=== PATIENT | female | born 1940 | race Caucasian/White ===

== ENCOUNTER 2017-02-09 14:55 | Inpatient (IN) ==
[2017-02-09] MEDS ORDERED: ASPIRIN PO STA (15:03)
[2017-02-09] MEDS ORDERED: NS 1,000 ML IV ONE (15:14)
--- NOTE | 2017-02-09 15:17 | EKG Report ---
Test Performed on : 02/09/2017 3:04:22 PM Test Reason : CHEST PAIN Blood Pressure : / mmHG Vent. Rate : 119 BPM Atrial Rate : 119 BPM P-R Int : 136 ms QRS Dur : 064 ms QT Int : 292 ms P-R-T Axes : -69 -20 043 degrees QTc Int : 410 ms Unusual P axis and short WI, probable junctional tachycardia. Abnormal ECG When compared with ECG of 16-JUL-2013 07:11, Junctional rhythm. has replaced Sinus rhythm. Unconfirmed Result
[2017-02-09 15:43] LABS: BE -2.1 mmoll (-3.0-3.0); BLOOD TYPE ARTERIAL; METHB 1.7 % (0.0-1.5); O2(CT) 18.1 mL/dL (15.0-23.0); PCO2(98.6) 31 mmHg (35-45); PO2(98.6) 84 mmHg (60-100); SAMPLE BLOOD; SAO2 97.8 % (95.0-100.0); THB 13.6 g/dL (11.5-17.4); pH(98.6) 7.44 (7.35-7.45)
[2017-02-09 15:51] LABS: BASO% 0.2 % (0.0-0.8); EOS% 0.8 % (0.0-10.0); HEMOGLOBIN 13.1 g/dL (12.0-16.0); IMM GRAN# 0.16 X1000 (0.0-0.04); IMM GRAN% 1.2 % (0.0-0.5); LYMPH# 2.87 X1000 (1.2-3.4); MANUAL DIFF NEEDED? NO; MCH 31.1 PG (27-31); MCHC 32.8 g/dL (33-37); MONO# 1.06 X1000 (0.11-0.59); MONO% 8.1 % (1.7-9.3); MPV 10.2 FL (7.4-10.4); NEUT% 67.7 % (42.2-75.2); PLT 269 X1000 (130-400); RBC 4.21 XMIL (4.2-5.4)
[2017-02-09 15:52] LABS: DRAW SITE R BRACHIAL; MODALITY ROOM AIR
[2017-02-09 16:02] LABS: AGAP 12; ALBUMIN 3.2 g/dL (3.5-5.0); ALKALINE PHOSPHATASE 68 U/L (32-104); BUN 48 mg/dL (8-22); CALCIUM 9.6 mg/dL (8.8-10.2); CHLORIDE 110 mmol/L (98-107); CK PROFILE 45 U/L (24-173); COSMO 311; GOT 10 U/L (10-30); GPT 11 U/L (10-36); MAGNESIUM 2.8 mg/dL (1.5-2.7); POTASSIUM 3.9 mmol/L (3.5-5.1); SODIUM 145 mmol/L (136-145); TCO2 24 mmol/L (25-35)
[2017-02-09 16:04] LABS: INR 1.02 (0.86-1.15); PROTIME 14.2 Seconds (12.1-15.5)
[2017-02-09 16:05] LABS: PTT PL 26.1 Seconds (22.6-43.9)
--- NOTE | 2017-02-09 16:42 | Diag Imaging Result Doc PS360 ---
EXAM: CT HEAD W/O CONTRAST HISTORY: AMS TECHNIQUE: CT brain without contrast. Dose reduction protocol. COMPARISON: None. FINDINGS: No parenchymal hemorrhage. No epidural or subdural hematoma. No subarachnoid hemorrhage. No mass identified on this noncontrasted exam. There is diffuse atrophy with chronic microvascular ischemic changes and ventricular prominence. No sinus opacification. IMPRESSION: 1.No hemorrhage 2.Atrophy with chronic microvascular ischemic changes Electronically signed by Seamus Espinosa 02/09/2017 4:39 PM
[2017-02-09 16:52] LABS: BILIRUBIN URINE NEGATIVE (NEGATIVE); BLOOD URINE 4+ (NEGATIVE); CLARITY CLEAR (CLEAR); COLOR YELLOW; GLUCOSE URINE NEGATIVE (NEGATIVE); LEUKOCYTES URINE 2+ (NEGATIVE); NITRITE URINE NEGATIVE (NEGATIVE); PROTEIN URINE 2+(100 mg/dL) mg/dL (NEGATIVE); UROBILINOGEN URINE NORMAL
[2017-02-09 16:53] LABS: URINE EPITHELIAL CELLS <10 /HPF (<10); URINE SOURCE CATH; URINE WBC TNTC /HPF (<10)
[2017-02-09 16:54] LABS: URINE CULTURE PL NEEDED? YES
[2017-02-09] MEDS ORDERED: ROCEPHIN 1 GM/NS 1 GM/50 ML IVPB IV ONE (16:56)
[2017-02-09] MEDS ORDERED: LEVAQUIN 500 MG/D5W 500 MG/100 ML IVPB IV ONE (16:56)
--- NOTE | 2017-02-09 17:01 | PROVIDER DOCUMENTATION ---
This chart was entered by Varsha Stevens Scribe, acting as scribe for Khadijah Mckeon MD. HPI-Neurological Disorder - General Chief Complaint: Altered Mental Status Stated Complaint: AMS Time Seen by Provider: 02/09/17 15:03 Allergies/Adverse Reactions: Patient Allergies Allergy/AdvReac Type Severity Reaction Status Date / Time No Known Allergies Allergy Verified 07/15/13 16:17 Home Medications: Home Medication List Medication Instructions Recorded Confirmed Last Taken Type Divalproex E.r. [Depakote ER] 1,000 mg PO QHS 07/15/13 08/18/13 08/17/13 21:00 History 1000 MG Levothyroxine [Synthroid] 88 microgm PO DAILY 07/15/13 08/18/13 08/18/13 06:00 History 88 MICROGM Memantine HCl [Namenda] 10 mg PO BID 07/15/13 08/18/13 08/18/13 09:00 History 10 MG Metoprolol [Lopressor] 25 mg PO BID 08/18/13 08/18/13 08/18/13 09:00 History 25 MG Folic Acid 1 mg PO DAILY #0 tablet 08/22/13 Unknown Rx Iron Carbonyl/Ascorbic Acid 1 each PO DAILY #0 tablet 08/22/13 Unknown Rx [Icar-C] Levothyroxine [Synthroid] 100 microgm PO DAILY #0 tablet 08/22/13 Unknown Rx Mvi/Minerals Chew [Flintstones 1 each PO BID #0 tablet 08/22/13 Unknown Rx Complete] Trazodone [Desyrel] 25 mg PO QHS #0 08/22/13 08/18/13 08/17/13 21:00 Rx 50 MG - History of Present Illness-Neuro Nature of Presenting Problem: Patient is 76 year old female presents to the ED via EMS with altered mental status. shelter staff told EMS that patient usually looks at them and now she will not. shelter staff stated to EMS she is non verbal. EMS states patient was recently diagnosed with an ileus and constipation. EMS states patient has history of dementia. Headache Location: denies: frontal, temporal, occipital, parietal, global Severity: reports: mild Onset/Duration: reports: this morning Timing: reports: still present Context: reports: other (AMS) Character of Altered Mental Status: reports: other (patient would not look at alf staff and patient normally looks at alf staff.) Any recent trauma/injury?: reports: none Character of Deficits: denies: new weakness, altered sensation, vision problem/ glaucoma, impaired speech, impaired swallowing, decreased ability to stand, decreased ability to walk, falling New weakness or altered sensation location:: reports: none Cognitive Baseline: other (alert but non verbal) Gait Baseline: unable to walk Associated Symptoms: reports: denies symptoms Similar Symptoms Previously?: Yes (present since this am ) Recently seen or treated by another doctor?: No Review of Systems - Adult - REVIEW OF SYSTEMS - ADULT Constitutional: reports: no symptoms reported Eyes: reports: no symptoms reported Ears, Nose, Mouth & Throat: reports: no symptoms reported Cardiovascular: reports: no symptoms reported Respiratory: reports: no symptoms reported Gastrointestinal: reports: no symptoms reported Genitourinary: reports: no symptoms reported Musculoskeletal: reports: no symptoms reported Integumentary: reports: no symptoms reported Neurological: reports: other (AMS). denies: dizziness/vertigo, headache/ migraines, numbness, syncope Psychiatric: reports: no symptoms reported Endocrine: reports: no symptoms reported Hematologic/Lymphatic: reports: no symptoms reported Allergic/Immunologic: reports: no symptoms reported All Other Systems: Reviewed and Negative Past History - Adult - PAST MEDICAL HISTORY-ADULT Review of Records: reports: Nursing Assessment Review, Medications Reviewed, Social history reviewed & non-contributory. Major Childhood Illnesses: reports: denies history Cardiovascular: reports: HTN Respiratory: reports: denies history Gastrointestinal: reports: denies history Obstetrical/Gynecological: reports: denies history Genitourinary: reports: denies history Musculoskeletal: reports: denies history Neurological: reports: dementia Endocrine/Immune: reports: Diabetes, thyroid disorder Other Conditions: reports: denies history - PRIOR SURGERIES/PROCEDURES Surgical/Procedure History: reports: hysterectomy, - IMMUNIZATION STATUS Childhood Immunizations: See Nurse Assessment Flu Vaccine: See Nurse Assessment - FAMILY HISTORY Family History: reviewed, not pertinent - SOCIAL HISTORY Smoking: denies Substance Use: denies Living Situation: family Physical Exam- Neurological - Physical Exam-Neuro Initial Vital Signs Reviewed: Yes General Appearance: appears well, alert, no apparent distress, other (verbally unresponsive). negative: lethargic, slow to respond Eye Exam: bilateral eye: normal inspection, PERRL, EOMI HENMT: normal ENT inspection. negative: angioedema, dental decay, hearing deficit Head Injury: no evidence of injury. negative: flap, swelling Neck: non-tender, normal inspection. negative: lymphadenopathy, tender lateral , tender midline Respiratory: chest non-tender, lungs clear, normal breath sounds. negative: crackles, rhonchi, stridor Cardiovascular: normal peripheral pulses, regular rate, rhythm. negative: tachycardia, systolic murmur Abdominal Exam: normal bowel sounds, soft, distended, guarding, tenderness ( generalized). negative: rebound, hernia Lymphatic: no adenopathy. negative: enlargement, streaking Extremity: normal inspection. 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 negative: normal speech Neurologic: other (verbally unresponsive). negative: facial droop Integumentary: normal color, normal turgor, warm/dry. negative: ecchymosis, erythema, rash, swelling Psych/Mental Status: negative: anxious, paranoid, tearful Progress - PLAN OF CARE/RESULTS Progress/Plan/Lab Results: Vital Signs - 8 hr 02/09/17 15:00 Temperature 98 F Pulse Rate 117 H Respiratory Rate 12 Blood Pressure 112/85 O2 Sat by Pulse Oximetry 99 Laboratory Results - last 24 hr 02/09/17 02/09/17 02/09/17 15:19 15:35 15:35 WBC RBC Hgb Hct MCV MCH MCHC RDW Std Deviation Plt Count MPV Immature Gran % (Auto) Neut % (Auto) Lymph % (Auto) [place] % (Auto) Eos % (Auto) Baso % (Auto) Immature Gran # (Auto) Neut # (Auto) Lymph # (Auto) [place] # (Auto) Eos # (Auto) Baso # (Auto) PT INR APTT (Factor Assay) D-Dimer Specimen Type ARTERIAL Sample Site R BRACHIAL pH 7.44 pCO2 31 L pO2 84 HCO3 23.2 Base Excess -2.1 Oxyhemoglobin 94.4 L ABG O2 Sat (Calculated) 18.1 ABG O2 Saturation 97.8 ABG Carboxyhemoglobin 1.80 ABG Methemoglobin 1.7 H A-a O2 Difference 27.0 Total Hemoglobin 13.6 Lactate 3.70 H Blood Gas Modality ROOM AIR FiO2 % 21.0 Sodium 145 Potassium 3.9 Chloride 110 H Carbon Dioxide 24 L Anion Gap 12 BUN 48 H Creatinine 0.6 Estimated GFR/1.73 m2 > 60 BUN/Creatinine Ratio 80 Glucose 275 H Calculated Osmolality 311 Calcium 9.6 Magnesium 2.8 H Total Bilirubin 0.30 AST 10 ALT 11 Alkaline Phosphatase 68 Creatine Kinase 45 Troponin T 0.195 H Dzs-F-Lmhgbfiyscc Pept Total Protein 7.0 Albumin 3.2 L Globulin 4.0 Albumin/Globulin Ratio 1.0 Urine Source Urine Color Urine Clarity Urine pH Ur Specific [place] Urine Protein Urine Ketones Urine Blood Urine Nitrite Urine Bilirubin Urine Urobilinogen Urine Microscopic RBC Urine WBC Urine Microscopic WBC Ur Epithelial Cells Urine Bacteria Urine Glucose 02/09/17 02/09/17 02/09/17 15:35 15:35 15:35 WBC 13.04 H RBC 4.21 Hgb 13.1 Hct 40.0 MCV 95.0 MCH 31.1 H MCHC 32.8 L RDW Std Deviation 14.6 H Plt Count 269 MPV 10.2 Immature Gran % (Auto) 1.2 H Neut % (Auto) 67.7 Lymph % (Auto) 22.0 [place] % (Auto) 8.1 Eos % (Auto) 0.8 Baso % (Auto) 0.2 Immature Gran # (Auto) 0.16 H Neut # (Auto) 8.83 H Lymph # (Auto) 2.87 [place] # (Auto) 1.06 H Eos # (Auto) 0.10 Baso # (Auto) 0.02 PT 14.2 INR 1.02 APTT (Factor Assay) 26.1 D-Dimer 2.69 H Specimen Type Sample Site pH pCO2 pO2 HCO3 Base Excess Oxyhemoglobin ABG O2 Sat (Calculated) ABG O2 Saturation ABG Carboxyhemoglobin ABG Methemoglobin A-a O2 Difference Total Hemoglobin Lactate Blood Gas Modality FiO2 % Sodium Potassium Chloride Carbon Dioxide Anion Gap BUN Creatinine Estimated GFR/1.73 m2 BUN/Creatinine Ratio Glucose Calculated Osmolality Calcium Magnesium Total Bilirubin AST ALT Alkaline Phosphatase Creatine Kinase Troponin T Nsn-E-Xmpcoqyhseb Pept 749 H Total Protein Albumin Globulin Albumin/Globulin Ratio Urine Source Urine Color Urine Clarity Urine pH Ur Specific [place] Urine Protein Urine Ketones Urine Blood Urine Nitrite Urine Bilirubin Urine Urobilinogen Urine Microscopic RBC Urine WBC Urine Microscopic WBC Ur Epithelial Cells Urine Bacteria Urine Glucose 02/09/17 16:14 WBC RBC Hgb Hct MCV MCH MCHC RDW Std Deviation Plt Count MPV Immature Gran % (Auto) Neut % (Auto) Lymph % (Auto) [place] % (Auto) Eos % (Auto) Baso % (Auto) Immature Gran # (Auto) Neut # (Auto) Lymph # (Auto) [place] # (Auto) Eos # (Auto) Baso # (Auto) PT INR APTT (Factor Assay) D-Dimer Specimen Type Sample Site pH pCO2 pO2 HCO3 Base Excess Oxyhemoglobin ABG O2 Sat (Calculated) ABG O2 Saturation ABG Carboxyhemoglobin ABG Methemoglobin A-a O2 Difference Total Hemoglobin Lactate Blood Gas Modality FiO2 % Sodium Potassium Chloride Carbon Dioxide Anion Gap BUN Creatinine Estimated GFR/1.73 m2 BUN/Creatinine Ratio Glucose Calculated Osmolality Calcium Magnesium Total Bilirubin AST ALT Alkaline Phosphatase Creatine Kinase Troponin T Bxr-F-Wfkveuwnldg Pept Total Protein Albumin Globulin Albumin/Globulin Ratio Urine Source CATH Urine Color YELLOW Urine Clarity CLEAR Urine pH 5.0 Ur Specific [place] 1.010 Urine Protein 2+(100 mg/dL) A Urine Ketones NEGATIVE Urine Blood 4+ Urine Nitrite NEGATIVE Urine Bilirubin NEGATIVE Urine Urobilinogen NORMAL Urine Microscopic RBC 10-20 A Urine WBC 2+ A Urine Microscopic WBC TNTC A Ur Epithelial Cells <10 Urine Bacteria 2+ Urine Glucose NEGATIVE Orders Category Date Time Status Cardiac Monitoring DIRECTED Care 02/09/17 15:03 Active Matute Cath Insertion ORDERED Care 02/09/17 15:14 Active Oxygen Therapy- ED Nursing DIRECTED Care 02/09/17 15:03 Active Saline Loc NOW Care 02/09/17 15:03 Active CHEST-PORTABLE [RAD] Stat Exams 02/09/17 15:[address] ABD/PELVIS/PULM ARTERIES [CT] Stat Exams 02/09/17 15:[address] HEAD W/O CONTRAST [CT] Stat Exams 02/09/17 15:14 Completed ABG [RESP] Routine Lab 02/09/17 15:19 Completed BLOOD CULTURE [BLDCUL] Stat Lab 02/09/17 15:14 Ordered CBC WITH ELECTRONIC DIFF [HEME] Stat Lab 02/09/17 15:35 Completed CK PROFILE [SP CHEM] Stat Lab 02/09/17 15:35 Completed COMPREHENSIVE METABOLIC PANEL [CHEM] Stat Lab 02/09/17 15:35 Com[address] D-DIMER PL [COAG] Stat Lab 02/09/17 15:35 Completed MAGNESIUM [CHEM] Stat Lab 02/09/17 15:35 Completed PRO B-NATRIURETIC PEPTIDE Stat Lab 02/09/17 15:35 Com[address]IME WITH INR PL [COAG] Stat Lab 02/09/17 15:[address] [COAG] Stat Lab 02/09/17 15:35 Completed TROPONIN T Stat Lab 02/09/17 15:[address] W/POSS RFLX CULT [URINALYSIS] Stat Lab 02/09/17 16:14 Completed URINE CULTURE [RM] Routine Lab 02/09/17 16:54 Ordered 0.9% Sodium Chloride Inj [Ns] 1,000 ml Med 02/09/17 15:14 Active IV 150 mls/hr Aspirin Med 02/09/17 15:03 Discontinued 325 mg PO STAT STA CefTRIAXONE 1 GM/NS [Rocephin 1 gm/Ns] Med 02/09/17 16:56 Active 1 gm in 50 ml IV NOW Levofloxacin 500 mg/D5w [Levaquin 500 mg/D5w] Med 02/09/17 16:56 Active 500 mg in 100 ml IV NOW EKG [EKG] Stat Ther 02/09/17 15:03 Draft Result Diagrams: 02/09/17 15:35 02/09/17 15:35 - CT/MRI 1 CT Study: Head Impression: Abnormal (no hemorrhage. atrophy with chronic microvascular ischemic changes) - CONSULTS/PCP/HOSPITALIST Notification #1 *Consult/PCP/Hospitalist*: Dr. Tidwell Time Discussed: 17:01 Consult Disposition: Will see in ED, Admit Departure - Departure Date of Disposition Decision: 02/09/17 Time of Disposition Decision: 16:59 DIAGNOSIS: Altered mental status, UTI (urinary tract infection), Elevated troponin Disposition: ADMITTED INPATIENT 09 Certified Medical Emergency: Emergent Condition: Serious Referrals and Follow-Ups: UNKNOWN, [Primary Care Provider] - - Critical Care Note This patient required my direct & personal management of CC.: Yes Total Time (mins): 45 Critical Care Statement: This patient required my direct personal management to treat or rule out processes, the absence of which, could potentiallly result in sudden, clinically significant life or limb threatening deterioration. Attestation - Physician/ DALIA Attestation Patient care was provided by Advanced Practice Provider:: No The physician spent face to face time with patient:: Yes Advanced Practice Provider documentation review:: Supervising physician onsite and consulted in the evaluation and care of this patient. The physician did have a face to face encounter with the patient. This chart was documented by the indicated scribe, (Varsha Stevens Scribe) and accurately reflects the services I performed and decisions made by me, Khadijah Mckeon MD, as attested by the provider's signature.
--- NOTE | 2017-02-09 17:01 | ED EKG INTERP ---
This chart was entered by Varsha Stevens Scribe, acting as scribe for Khadijah Mckeon MD. EKG Interpretation - EKG Time of EKG reading by physician:: 15:04 EKG Read and Signed by:: Khadijah Mckeon EKG Interpretation (*Must complete 3 of following elements*): Abnormal Rate: 119 Rhythm: unusual P axis and short OR, probable junctional tachycardia Comments: abnormal ECG Attestation - Physician/ DALIA Attestation Patient care was provided by Advanced Practice Provider:: No The physician spent face to face time with patient:: Yes Advanced Practice Provider documentation review:: Supervising physician onsite and consulted in the evaluation and care of this patient. The physician did have a face to face encounter with the patient. This chart was documented by the indicated scribe, (Varsha Stevens Scribe) and accurately reflects the services I performed and decisions made by me, Khadijah Mckeon MD, as attested by the provider's signature.
--- NOTE | 2017-02-09 17:04 | Diag Imaging Result Doc PS360 ---
EXAM: CT ABD/PELVIS/PULM ARTERIES HISTORY: Abd pain/AMS TECHNIQUE: CT chest with contrast. CT abdomen and pelvis with contrast. Dose reduction protocol. COMPARISON: None. FINDINGS: Chest: No pleural effusions. No cardiomegaly. No thoracic aortic aneurysm or dissection. Normal opacification of the pulmonary arteries and their major branches. No consolidation. No bronchiectasis. There is a calcified granuloma in the left upper lobe. There are small calcified left hilar nodes. Abdomen and pelvis: There are multiple stones filling the gallbladder. The gallbladder wall is not thickened and there is no adjacent inflammation. Normal liver, spleen, and adrenal glands. There is a 2.6 cm cyst within the tail of the pancreas. No adjacent inflammation. No pancreatic calcifications a 2.3 cm cyst arises from the right kidney. There is a 1.5 x 1.6 x 0.9 cm stone in the right renal pelvis. There is air about the stone and in the renal pelvis. Mild adjacent inflammation. No aortic aneurysm. There is a large amount of stool within the distal sigmoid colon and rectum. This is distended to almost 7 cm. There is thickening to the wall of the distal colon and rectum. Mild adjacent inflammation about the rectum. A Matute catheter has the urinary bladder decompressed. Normal appendix. IMPRESSION: Chest: 1. No pulmonary emboli 2. There is evidence of a prior granulomatous infection Abdomen and pelvis: 1. Cholelithiasis 2. Large stone in the right renal pelvis with mild adjacent inflammation and air which may indicate an infection within the renal pelvis/collecting system. 3. Fecal impaction with constipation and associated proctitis. Electronically signed by Seamus Espinosa 02/09/2017 5:02 PM
--- NOTE | 2017-02-09 17:12 | Diag Imaging Result Doc PS360 ---
EXAM: CHEST-PORTABLE HISTORY: AMS TECHNIQUE: Supine COMPARISON: 08/18/2013 FINDINGS: The lungs are well expanded. The heart is not enlarged. The vessels are not distended. No pneumonia. There is a granuloma in the left base. IMPRESSION: Negative chest Electronically signed by Seamus Espinosa 02/09/2017 5:10 PM
[2017-02-09] MEDS ORDERED: TYLENOL PO PRN (18:08)
[2017-02-09] MEDS ORDERED: ZOFRAN IV PRN (18:08)
[2017-02-09] MEDS ORDERED: ROCEPHIN 1 GM/NS 1 GM/50 ML IVPB IV SCH (18:15)
[2017-02-09] MEDS ORDERED: NON-FORMULARY BULK MED SCH (18:30)
[2017-02-09] MEDS ORDERED: VANCOMYCIN IV PER PHARMACY MISC SCH (18:45)
[2017-02-09] MEDS ORDERED: VANCOMYCIN 1 GM/NS 1 GM/250 ML IVPB IV ONE (19:30)
[2017-02-09] MEDS: PROTONIX IV SCH (22:18)
[2017-02-09] MEDS: NS 1,000 ML IV SCH (22:19)
[2017-02-09] MEDS: HUMALOG DOSE (PARKWAY) SUBQ SCH (22:19)
--- NOTE | 2017-02-10 03:55 | PROGRESS NOTE ---
DATE: 02/09/2017 ADDENDUM: The patient is a resident at [facility]. Came into the hospital secondary to acute confusion and disorientation. The family checked on her yesterday morning and she was not eating or drinking very well. Last night symptoms worsened. Today she was still not wake or alert. She was brought to the emergency department. They deny any knowledge of fevers, chills. Denied any knowledge of infection or sickness. OBJECTIVE: She is having some abdominal distention, does not appear to be tender. She is awake and alert, but does not follow commands. Does not answer questions. She is in no respiratory distress. PLAN: The patient seen and examined. Care plan discussed with the nurse practitioner. Please see full note. We will admit patient to the hospital. IV fluids. Antibiotics. Discussed with patient's family Do Not Resuscitate status. They are considering. Further orders as needed. cc: Antonio Tidwell MD
[2017-02-10] MEDS: HUMALOG DOSE (PARKWAY) SUBQ SCH ×5 (05:51→21:15)
[2017-02-10] MEDS: NS 1,000 ML IV SCH ×3 (05:51→14:07)
[2017-02-10 06:21] LABS: HEMATOCRIT 37.9 % (37.0-47.0); HEMOGLOBIN 12.2 g/dL (12.0-16.0); MCH 30.6 PG (27-31); MCHC 32.2 g/dL (33-37); MPV 10.7 FL (7.4-10.4); RBC 3.99 XMIL (4.2-5.4)
[2017-02-10 06:44] LABS: AGAP 13; ALBUMIN 2.9 g/dL (3.5-5.0); ALKALINE PHOSPHATASE 79 U/L (32-104); BUN 41 mg/dL (8-22); CALCIUM 9.1 mg/dL (8.8-10.2); CHLORIDE 114 mmol/L (98-107); COSMO 307; GOT 15 U/L (10-30); GPT 10 U/L (10-36); POTASSIUM 4.2 mmol/L (3.5-5.1); SODIUM 147 mmol/L (136-145); TCO2 21 mmol/L (25-35); TOTAL PROTEIN 6.7 g/dL (6.3-8.3)
[2017-02-10] MEDS ORDERED: MILK OF MAGNESIA PO PRN (07:01)
[2017-02-10] MEDS ORDERED: VANCOMYCIN 500 MG in NS 100 ML IV ONE (08:00)
[2017-02-10] MEDS ORDERED: D5 1/2 NS 500 ML IV SCH (08:14)
[2017-02-10] MEDS: LACTULOSE PO SCH ×3 (08:34→16:43)
[2017-02-10] MEDS: MEGACE LIQUID PO SCH ×2 (08:34→20:10)
[2017-02-10] MEDS: FLINTSTONES COMPLETE PO SCH ×2 (08:35→20:10)
[2017-02-10] MEDS: ICAR-C PO SCH (08:36)
[2017-02-10] MEDS: ASPIRIN PO SCH (08:36)
[2017-02-10] MEDS: GLUCOPHAGE PO SCH ×2 (08:36→16:43)
[2017-02-10] MEDS: SYNTHROID PO SCH (08:53)
[2017-02-10] MEDS ORDERED: [UNRECOGNIZED DRUG - OTHER] PO SCH (09:00)
[2017-02-10] MEDS ORDERED: PROTEIN HYDROLYSATE MILK PO SCH (09:00)
[2017-02-10 10:48] LABS: ALLEN TEST NO
--- NOTE | 2017-02-10 17:06 | PROGRESS NOTE ---
DATE: 02/10/2017 SUBJECTIVE: The patient family members are present. They feel that the patient is more alert today. They are feeding the patient. She is eating. OBJECTIVE: Vital Signs: Blood pressure is 124/65 with a heart rate of 90, respirations are 18, temperature is 98.5 with O2 saturations of 91-98% on 2 L nasal cannula. Cardiovascular: Regular rate and rhythm. S1 and S2 appreciated. Pulmonary: Breath sounds are clear, although diminished at the bases, with no increased work of breathing noted. Gastrointestinal: Abdomen is soft, nondistended, with bowel sounds in all 4 quadrants. : Matute is patent to bedside bag with clear yellow urine draining. Musculoskeletal: Good range of motion of joints. Neurologic: She is awake. She is alert. She is nonverbal, and she does not follow commands. This is her norm. LABORATORY: WBC is 10.93, with a hemoglobin of 12.2, hematocrit 37.9, and platelets of 261,000. Sodium is 147, potassium 4.2, BUN 41, creatinine 0.4 with glucose ranging from 178-200. TSH is 999. ASSESSMENT; 1. AMS 2. UTI 3. Elevated troponin 4. Leukocytosis 5. elevated ddimer 6. Dementia 7. Hyprtension Will continue current regimen Awaiting C&S results, urine Dictated by LIZANDRO Cosme for Antonio Tidwell MD cc: LIZANDRO Cosme MD [facility]
--- NOTE | 2017-02-10 17:24 | HISTORY AND PHYSICAL ---
CHIEF COMPLAINT: Altered mental status. HISTORY OF PRESENT ILLNESS: This is a 76-year-old female, who presented to the emergency room via EMS from her assisted living after being found having altered mental status. The long term staff stated that the patient usually made eye contact as she is not nonverbal. She was recently diagnosed with constipation and an ileus. senior living staff denied any nausea, vomiting, diarrhea, any fever or chills. Urinalysis revealed 10-20 microscopic red blood cells, too numerous to count microscopic white blood cells, and 2+ bacteria. Urine cultures and blood cultures were obtained. She was given Levaquin in the emergency room and she is being admitted for further evaluation and treatment. PAST MEDICAL HISTORY: Dementia, hypertension, hypothyroid, chronic anemia. PAST SURGICAL HISTORY: . SOCIAL HISTORY: She resides at an assisted living. No alcohol, tobacco or illicit drug use per family members. REVIEW OF SYSTEMS: Unable to obtain from the patient as she is nonverbal and confused. PHYSICAL EXAMINATION: GENERAL: This is a 76-year-old female who is sitting in the bed in no distress. VITAL SIGNS: Blood pressure is 125/77 with a heart rate of 101, respirations are 16, temperature is 98.9 degrees oral with room air saturations of 98-100%. CARDIOVASCULAR: Regular rate and rhythm. S1 and S2 appreciated. PULMONARY: Breath sounds are clear with no increased work of breathing noted. GASTROINTESTINAL: Abdomen is soft, slightly distended with generalized tenderness. Bowel sounds in all 4 quadrants. EXTREMITIES: No clubbing, cyanosis, or edema. Calves are nontender. Pulses are palpable x 4. NEUROLOGIC: She is alert. Pupils equal, round, react to light. She is nonverbal, which is her normal. She does not follow commands, which is her norm. She does move extremities at random. DIAGNOSTICS: WBC is 13 with hemoglobin 13.1, hematocrit 40 and platelets of 269,000. D-dimer is 2.69. Sodium is 145, potassium 3.9, BUN 48, with a creatinine 0.6 and a glucose of 275. Troponin is 0.195. Urinalysis reveals too numerous to count white blood cells. CT of the abdomen and pelvis revealed no pulmonary emboli. Cholelithiasis with a 1.5 x 1.6 x 0.9 cm stone in the right renal pelvis with adjacent inflammation and air, which may indicate an infection in the renal pelvis or collecting system, as well as a fecal impaction with constipation and associated proctitis. CT of the head revealed no hemorrhage, atrophy with chronic microvascular ischemic changes. ASSESSMENT: 1. Altered mental status. This very well could be secondary to a urinary tract infection. Antibiotics were started in the emergency room, we will continue. The patient is normally nonverbal and normally does not follow commands, so we are not sure how far off she is from her normal and will continue to follow. 2. Urinary tract infection. Urine cultures are pending. In review of the patient's past records, she does have a 1.5 x 1.6 x 0.9 cm right renal pelvis stone. There is no hydronephrosis mentioned, just mild adjacent inflammation and air, which may indicate infection. Matute catheter is in place and she is draining well. We will add vancomycin dosed per pharmacy along with Rocephin and any further antibiotics will be culture-driven. 3. Elevated troponin. Repeat troponin is decreasing. Dr. Holcomb did have a discussion with the family. They are considering DNR. At present they do not want any interventions. Therefore, they do not want any cardiac interventions at present as they do not feel the patient is strong enough to go through this. We will continue to just follow. 4. Leukocytosis. This is most likely secondary to urinary tract infection. 5. Elevated D-dimer. As stated above, CTA is negative. 6. Chronic anemia. 7. Dementia. 8. Hypertension. 9. Hypothyroidism, uncontrolled. PLAN: Will obtain a TSH. Will identify her home medications and continue as appropriate. We will trend her labs daily. We will follow electrolytes and replete as needed. We will trend blood sugars and treat per sliding scale. Further treatments pending hospital course. Dictated by LIZANDRO Cosme for Antonio Tidwell MD cc: LIZANDRO Cosme MD
[2017-02-10] MEDS ORDERED: ROCEPHIN ONE ×2 (18:42→18:49)
[2017-02-10] MEDS: PROTONIX IV SCH (18:56)
[2017-02-10] MEDS: ROCEPHIN 1 GM in NS 50 ML IV SCH (18:56)
[2017-02-10] MEDS: SODIUM CHLORIDE 0.9% INJ SCH (18:56)
--- NOTE | 2017-02-10 19:19 | PROGRESS NOTE ---
DATE: 02/10/2017 SUBJECTION: Patient seen and examined. Plan and care discussed with the nurse practitioner, please see full note. OBJECTIVE: The patient is lying in bed. She is much more awake than she was. Today still confused, but more alert and does respond to stimuli. Daughter at the bedside notes that she has started drinking a little bit better. Again discussed with long-term plan, DNR, etc. No plans have been made. Daughter understands that although from hydration standpoint Ms. Cardenas should improve with IV fluids, that it is unlikely that her baseline confusion will improve. cc: Antonio Tidwell MD
[2017-02-11] MEDS: NS 1,000 ML IV SCH ×2 (05:30→15:52)
[2017-02-11] MEDS: SYNTHROID PO SCH (06:29)
[2017-02-11] MEDS: HUMALOG DOSE (PARKWAY) SUBQ SCH ×4 (06:31→21:21)
[2017-02-11] MEDS: GLUCOPHAGE PO SCH ×2 (09:09→17:06)
[2017-02-11] MEDS: FLINTSTONES COMPLETE PO SCH ×2 (09:09→20:07)
[2017-02-11] MEDS: ASPIRIN PO SCH (09:10)
[2017-02-11] MEDS: ICAR-C PO SCH (09:10)
[2017-02-11] MEDS: LACTULOSE PO SCH ×3 (09:17→17:05)
[2017-02-11] MEDS: MEGACE LIQUID PO SCH ×2 (09:18→20:07)
[2017-02-11] MEDS: SODIUM CHLORIDE 0.9% INJ SCH (17:06)
[2017-02-11] MEDS: PROTONIX IV SCH (17:14)
[2017-02-11] MEDS: ROCEPHIN 1 GM in NS 50 ML IV SCH (18:39)
--- NOTE | 2017-02-11 19:41 | PROGRESS NOTE ---
DATE: 02/11/2017 SUBJECTIVE: Patient without any new changes. She is lying in bed. She is more awake than on admission, but she does not follow commands or answer questions. Daughters note that she is pretty much back to her baseline. She is starting to eat a little bit better. OBJECTIVE: Vital Signs: Reviewed. She is afebrile. Blood pressure is stable. Heart rate 90s, respiratory 20. General: Patient is awake. She is mumbling nonsensical words. Does not answer questions or follow commands. HEENT: Normocephalic, atraumatic. FLYNN. Neck: Supple. CV: Regular rate. Chest: Clear. Abdomen: Soft. Extremities: Noted to move all 4 extremities. ASSESSMENT: 1. Metabolic encephalopathy, improving secondary to gram-negative charles urinary tract infection. 2. Negative charles urinary tract infection. 3. Alzheimer's type dementia. 4. Adult failure to thrive. 5. Dehydration, resolved. PLAN: Continue IV fluids. Antibiotics and follow. Continue discuss long-term care and long-term plans. cc: Antonio Tidwell MD
[2017-02-12 05:47] LABS: HEMATOCRIT 37.7 % (37.0-47.0); HEMOGLOBIN 12.2 g/dL (12.0-16.0); MCH 30.7 PG (27-31); MCHC 32.4 g/dL (33-37); MCV 94.7 FL (81-99); MPV 10.4 FL (7.4-10.4); RBC 3.98 XMIL (4.2-5.4)
[2017-02-12] MEDS: SYNTHROID PO SCH (06:15)
[2017-02-12] MEDS: NS 1,000 ML IV SCH (06:15)
[2017-02-12 06:16] LABS: AGAP 13; ALBUMIN 2.8 g/dL (3.5-5.0); ALKALINE PHOSPHATASE 60 U/L (32-104); BUN 14 mg/dL (8-22); CALCIUM 8.4 mg/dL (8.8-10.2); CHLORIDE 106 mmol/L (98-107); COSMO 278; GOT 13 U/L (10-30); GPT 9 U/L (10-36); SODIUM 139 mmol/L (136-145); TCO2 21 mmol/L (25-35); TOTAL PROTEIN 6.1 g/dL (6.3-8.3)
[2017-02-12] MEDS: HUMALOG DOSE (PARKWAY) SUBQ SCH ×4 (06:22→21:35)
[2017-02-12] MEDS ORDERED: VANCOMYCIN 1,250 MG in NS 250 ML IV SCH (09:00)
[2017-02-12] MEDS: LACTULOSE PO SCH ×3 (09:42→18:07)
[2017-02-12] MEDS: MEGACE LIQUID PO SCH ×2 (09:43→20:11)
[2017-02-12] MEDS: GLUCOPHAGE PO SCH ×2 (09:45→18:08)
[2017-02-12] MEDS: ASPIRIN PO SCH (09:46)
[2017-02-12] MEDS: LEVAQUIN PO SCH (09:46)
[2017-02-12] MEDS: ICAR-C PO SCH (09:46)
[2017-02-12] MEDS: FLINTSTONES COMPLETE PO SCH ×2 (09:46→20:11)
[2017-02-12] MEDS: ROCEPHIN 1 GM in NS 50 ML IV SCH (18:08)
--- NOTE | 2017-02-12 19:55 | PROGRESS NOTE ---
DATE: 02/11/2017 SUBJECTIVE: No real changes. Patient is awake. Does not follow commands. Family notes that she is pretty much back to her baseline. She is drinking better. OBJECTIVE: Vital Signs: Reviewed. She is afebrile. Blood pressure is stable. Heart rate stable. Respiratory 22. General: Patient is awake. She does not respond to commands. Does not follow commands. She does vocalize when stimulated. HEENT: Normocephalic, atraumatic. FLYNN. Neck: Supple. CARDIOVASCULAR: Regular rate. Chest: Clear. Abdomen: Soft. Extremities: Moves all extremities. Neurologic: No changes. LABORATORY: Pending. ASSESSMENT: 1. Klebsiella pneumoniae urinary tract infection, sensitive to Levaquin. 2. Adult failure to thrive. 3. Chronic dementia. PLAN: We will saline lock, change to Levaquin. Recheck laboratory in the a.m. and hopefully back to rehab soon. cc: Antonio Tidwell MD
[2017-02-12] MEDS ORDERED: PROTONIX PO SCH (21:00)
[2017-02-13] MEDS: SYNTHROID PO SCH (06:08)
[2017-02-13 06:42] LABS: HEMATOCRIT 33.9 % (37.0-47.0); HEMOGLOBIN 11.4 g/dL (12.0-16.0); MCH 31.4 PG (27-31); MCHC 33.6 g/dL (33-37); MCV 93.4 FL (81-99); MPV 10.5 FL (7.4-10.4); RBC 3.63 XMIL (4.2-5.4)
[2017-02-13] MEDS: HUMALOG DOSE (PARKWAY) SUBQ SCH ×2 (06:46→11:36)
[2017-02-13 07:10] LABS: AGAP 12; ALBUMIN 2.4 g/dL (3.5-5.0); ALKALINE PHOSPHATASE 51 U/L (32-104); BUN 9 mg/dL (8-22); CALCIUM 7.9 mg/dL (8.8-10.2); CHLORIDE 106 mmol/L (98-107); COSMO 272; GOT 13 U/L (10-30); GPT 9 U/L (10-36); POTASSIUM 3.5 mmol/L (3.5-5.1); SODIUM 137 mmol/L (136-145); TCO2 19 mmol/L (25-35); TOTAL PROTEIN 5.6 g/dL (6.3-8.3)
[2017-02-13] MEDS: FLINTSTONES COMPLETE PO SCH (08:19)
[2017-02-13] MEDS: LACTULOSE PO SCH ×2 (08:19→14:07)
[2017-02-13] MEDS: MEGACE LIQUID PO SCH (08:19)
[2017-02-13] MEDS: ASPIRIN PO SCH (08:20)
[2017-02-13] MEDS: LEVAQUIN PO SCH (08:20)
[2017-02-13] MEDS: ICAR-C PO SCH (08:20)
[2017-02-13] MEDS: GLUCOPHAGE PO SCH (08:20)
--- NOTE | 2017-02-13 10:51 | DISCHARGE SUMMARY ---
ADMISSION DATE: 02/09/2017 DISCHARGE DATE: 02/13/2017 DIAGNOSES: 1. Klebsiella pneumoniae urinary tract infection, sensitive to Levaquin. 2. Adult failure to thrive. 3. Chronic dementia. DIAGNOSTICS: 1. 02/09/2017, CT of the abdomen and pelvis revealed no pulmonary emboli. Cholelithiasis. Large stone in the right renal pelvis with mild adjacent inflammation and air which may indicate infection. 2. Fecal impaction. 3. Head CT. No hemorrhage. Atrophy with chronic microvascular changes. 4. Microbiology. Urine culture revealed Klebsiella pneumoniae which is Levaquin sensitive. 5. Blood cultures x2. No growth after 48 hours. HOSPITAL COURSE: Ms. Peters presented to the emergency room from assisted living after being found having altered mental status. The patient is normally nonverbal. At her norm, she usually made eye contact. She was found to have an impaction for which she received multiple milk and molasses enemas for good results. She did have an elevated D-dimer with negative CTA. She was found have a TSH of 9.99. Synthroid was continued. White count was 13 on admission. It is down to 10 today. Ms Peters continues altered. She does not make eye contact. She does respond to pain by withdrawing. Otherwise the daughter states she is at her normal. PHYSICAL EXAMINATION: Cardiovascular: Regular rate and rhythm. S1 and S2 are appreciated. Pulmonary: Breath sounds are clear with no increased work of breathing noted. Gastrointestinal: Abdomen is soft, nontender, nondistended. Bowel sounds in all 4 quadrants. Extremities: She moves extremities at random. Withdraws from pain. She does not follow commands. Neurologic: As stated before, she will vocalize when stimulated to pain. Speech is intelligible. She does not follow commands. She does withdraw from pain. DISCHARGE MEDICATIONS: Milk of magnesia daily, Megace 5 mL b.i.d., lactulose 15 mL t.i.d., Glucophage a 1000 b.i.d., Flintstones vitamin daily, Icar C daily, Synthroid 75 mcg daily, Levaquin 500 mg daily x 7 days. DISCHARGE VITAL SIGNS: Blood pressure is 127/69 with a heart rate of 82, respirations are 18, temperature is 98.2 degrees oral with O2 saturations of 100%. DISCHARGE DIET: Pureed. DISPOSITION: She is being discharged to rehab via EMS transport with family members present. TIME SPENT: This is a greater than 30 minutes discharge. Dictated by LIZANDRO Cosme for Antonio Tidwell MD cc: LIZANDRO Cosme MD
[2017-02-13 11:34] VITALS: BP 125/86
== END 2017-02-13 14:05 ==
LOC: P.ED 14:55 → P.MEDSURG 20:01
PROVIDERS: ATTEND Family Medicine